=== PATIENT | female | born 1955 | race Caucasian/White ===

== ENCOUNTER 2020-02-29 18:08 | Emergency (ER) | payer MEDICARE, MEDICAID ==
[~2020-02-29] VITALS: Ht 165.1 cm; Wt 79.4 kg
[2020-02-29 19:47] LABS: URINE BILIRUBIN NEGATIVE (Negative); URINE BLOOD TRACE (Negative); URINE CLARITY CLEAR; URINE COLOR YELLOW; URINE GLUCOSE-RANDOM NEGATIVE (Negative); URINE KETONES NEGATIVE (Negative); URINE LEUKOCYTES-REFLEX TRACE (Negative); URINE NITRITE-REFLEX NEGATIVE (Negative); URINE PROTEIN NEGATIVE (Negative); URINE SPECIFIC GRAVITY 1.015 (1.005-1.030); URINE UROBILINOGEN 0.2 E.U./dl (0.2-1.0)
[2020-02-29 19:54] LABS: SQUAMOUS 0-3 Few /LPF (0-3)
[2020-02-29 19:55] LABS: BACTERIA-REFLEX 1-9 Few /HPF (None Seen); URINE RBC 0-2 Rare /HPF (0-2); URINE WBC-REFLEX 0-5 Rare /HPF (0-5)
[2020-02-29 19:56] LABS: CASTS None Seen /LPF (None Seen); CRYSTALS None Seen /LPF (None Seen); MUCUS None Seen strn/LPF (None Seen)
[2020-02-29 20:07] LABS: AMP/METHAMP Negative (Negative); BARBITURATES Negative (Negative); BENZODIAZEPINES Negative (Negative); COCAINE Negative (Negative); METHADONE Negative (Negative); OPIATES Negative (Negative); PCP Negative (Negative); THC Negative (Negative)
[2020-02-29 20:56] LABS: INFLUENZA A ANTIGEN Negative (Negative); INFLUENZA B ANTIGEN Negative (Negative)
[2020-02-29 21:31] LABS: ABSOLUTE BASOPHILS 0.1 thou/uL (0.0-0.2); ABSOLUTE EOSINOPHILS 0.3 thou/uL (0.0-0.7); ABSOLUTE LYMPHOCYTES 2.8 thou/uL (0.8-5.3); ABSOLUTE MONOCYTES 0.6 thou/uL (0.0-1.2); ABSOLUTE NEUTROPHILS 4.5 thou/uL (1.6-8.1); BASOPHILS 0.7 %; EOSINOPHILS 4.2 %; HEMATOCRIT 37.9 % (37.0-47.0); HEMOGLOBIN 12.9 gm/dL (12.0-15.0); LYMPHOCYTES 34.2 %; MCH 27.4 pg (26.0-34.0); MCHC 33.9 g/dL (28.0-37.0); MCV 80.7 fL (80.0-100.0); MONOCYTES 6.9 %; MPV 6.6 fl. (7.2-11.1); NUCLEATED RBCS 0 /100WBC; PLATELET COUNT* 275 thou/uL (150-400); RDW-CV 15.2 % (10.5-14.5); WBC 8.3 thou/uL (4.0-11.0)
[2020-02-29 21:50] LABS: CREATININE 0.8 mg/dL (0.6-1.3); POTASSIUM 3.5 mmol/L (3.5-5.1)
[2020-02-29 21:55] LABS: ALBUMIN 3.5 g/dL (3.4-5.0); TOTAL BILIRUBIN 0.3 mg/dL (<0.1-1.0); TOTAL PROTEIN 7.2 g/dL (6.4-8.2)
[2020-02-29] MEDS ORDERED: VENTOLIN HFA 1818 GM INH (22:04)
[2020-02-29] MEDS ORDERED: KEFLEX500 M1 PO (22:04)
[2020-02-29] MEDS ORDERED: BENTYL 20 MG TA20 M1 PO (22:04)
[2020-02-29 23:53] VITALS: BP 106/65
--- NOTE | 2020-03-01 11:33 | EKG ---
[place] [address] ELECTROCARDIOGRAM REPORT Name: GERMAN LANG Room: [facility]#: [id number] Admission: 02/29/20 Attend Phys: Discharge: 02/29/20 Date of : 59 Date of Service: 02/29/202119 Report #: [id number] THIS REPORT FOR: //name// [facility] [place] ED Test Date: 2020-02-29 Test Time: 21:20:52 Pat Name: GERMAN LANG Department: Room: Gender: F Senior [employer]: : 1955 Requested By: Miriam Baer Order Number: [id number] MD: Peyman Eastman Measurements Intervals [place] Rate: 67 P: 69 OK: 162 QRS: 88 QRSD: 112 T: 59 QT: 363 QTc: 383 Interpretive Statements Sinus rhythm Borderline intraventricular conduction delay No previous ECG available for comparison Electronically Signed On 03-01-2020 11:33:21 [employer] by Peyman Eastman [email or web address] <ELECTRONICALLY SIGNED> By: Peyman Eastman MD, [facility] 03/01/20 1133 19 19 Peyman Eastman MD, FACC /EPI
== END 2020-02-29 23:53 | disposition home or self-care (01) ==
LOC: M.ERS 18:08
PROVIDERS: Nurse Practitioner Family
DX: N39.0 Urinary tract infection, site not specified (principal); J98.8 Other specified respiratory disorders; N89.8 Other specified noninflammatory disorders of vagina; Z20.828 Contact with and (suspected) exposure to other viral communicable diseases; Z88.2 Allergy status to sulfonamides; Z90.89 Acquired absence of other organs; Z90.49 Acquired absence of other specified parts of digestive tract; Z88.1 Allergy status to other antibiotic agents